=== PATIENT | female | born 2000 | race Caucasian/White ===

== ENCOUNTER 2019-06-13 20:18 | Emergency (ER) | payer SELFPAY ==
[~2019-06-13] VITALS: Ht 152.4 cm; Wt 45.5 kg
[2019-06-13 20:26] VITALS: BP 128/77; Ht 152.4 cm; Wt 45.5 kg
[2019-06-13] MEDS ORDERED: KEFLEX500 MG PO (21:35)
== END 2019-06-13 21:54 | disposition home or self-care (01) ==
LOC: D.ER 20:18
DX: S60.212A Contusion of left wrist, initial encounter (principal); W19.XXXA Unspecified fall, initial encounter; Y93.9 Activity, unspecified; Y92.9 Unspecified place or not applicable; S60.512A Abrasion of left hand, initial encounter; S80.211A Abrasion, right knee, initial encounter; S80.01XA Contusion of right knee, initial encounter

== ENCOUNTER 2020-12-30 08:08 | Emergency (ER) | payer SELFPAY ==
[~2020-12-30] VITALS: Ht 152.4 cm; Wt 54.5 kg
[~2020-12-30 08:08] MED LIST: KEFLEX500 MG PO
[2020-12-30 08:15] VITALS: BP 124/79; Ht 152.4 cm; Wt 54.5 kg
== END 2020-12-30 09:02 | disposition left against medical advice (07) ==
LOC: D.ER 08:08
DX: R10.9 Unspecified abdominal pain (principal)